=== PATIENT | female | born 1970 | race Caucasian/White ===

== ENCOUNTER 2017-07-06 08:08 | Outpatient (CLI) | payer OTHER ==
--- OUTSIDE RECORDS SUMMARY | 2017-07-06 08:15 | XMS | Clinical Summary ---
:1970 Author Organization [facility] Address [address] [place] [address] Phone Care Team Providers Name Role Phone , Primary Care Provider Unavailable Allergies Not on File Current Medications Not on file Active Problems Not on file Social History Tobacco Use Types Packs/Day Years Used Date Never Assessed Sex Assigned at Date Recorded Not on file Last Filed Vital Signs Not on file Plan of Treatment Not on file Results Not on filefrom Last 3 Months
[2017-07-06 10:25] LABS: Hematocrit 50.4 % (36.0-47.0); Mean Platelet Volume 7.7 fL (7.4-10.4)
[2017-07-06 10:41] LABS: ALT (SGPT) 34 U/L (8-55); AST (SGOT) 25 U/L (5-34); Alkaline Phosphatase 108 U/L (40-150); Anion Gap 17 mmol/L (10-20); BUN (Urea Nitrogen) 19 mg/dL (7.0-18.7); Bilirubin, Direct 0.6 mg/dL (0.1-0.3); Bilirubin, Total 1.4 mg/dL (0.2-1.2); Calc. Creatinine Clearance 0 mL/min (70-130); Calcium 9.8 mg/dL (7.8-10.44); Carbon Dioxide 24 mmol/L (22-29); Chloride 101 mmol/L (98-107); Estimated GFR-MDRD Greater than 90; Globulin 3.3 g/dL (2.4-3.5); Protein, Total 7.7 g/dL (6.0-8.3)
[2017-07-06 10:48] LABS: Hemoglobin A1c 10.7 % (4.0-6.0)
--- NOTE | 2017-07-06 12:41 | RAD ---
CHEST PA AND LATERAL: HISTORY: A 46-year-old female for preoperative evaluation. FINDINGS: Heart size is normal. The lungs are clear. IMPRESSION: No acute intrathoracic disease. POS: [facility]
== END 2017-07-06 08:09 | disposition home or self-care (01) ==
LOC: LABBT 08:08
PROVIDERS: ATTEND Surgery
DX: Z01.818 Encounter for other preprocedural examination (principal); E66.01 Morbid (severe) obesity due to excess calories
CPT/HCPCS: 71020; 80053; 80076; 83036; 85027; 93005; 93010

== ENCOUNTER 2018-08-17 09:02 | Outpatient (CLI) | payer OTHER ==
--- NOTE | 2018-08-17 10:35 | ULT ---
GALLBLADDER ULTRASOUND: HISTORY: Hyperbilirubinemia. COMPARISON: None. TECHNIQUE: Utilizing a Multi-Hertz transducer, sonographic imaging of the right upper quadrant was performed in the longitudinal and transverse planes. FINDINGS: The head and proximal body of the pancreas have a normal echotexture. The remainder of the pancreas is obscured by bowel gas. The visualized aorta has a normal caliber. Increased echogenicity of the liver may be due to hepatic steatosis or hepatocellular disease. Subse quent evaluation for hepatic mass and intrahepatic biliary dilatation is limited. The contour of the hepatic margin is maintained. The right hepatic lobe measures 19.5 cm. The main portal vein is patent. Appropriate directional flow. No evidence of hydronephrosis. The right kidney measures 4.9 x 6.1 x 12.6 cm. Suboptimal evaluation of the common duct. There is a nonshadowing echogenic focus adherent to the wall of the gallbladder, likely representing an adherent, nonshadowing stone versus a gallbladder wall polyp. There is no evidence of pericholecy stic fluid. the gallbladder wall is not thickened. Negative Eagle sign. IMPRESSION: No sonographic evidence of cholecystitis. POS: [facility]
== END 2018-08-17 09:03 | disposition home or self-care (01) ==
LOC: BICULT 09:02
PROVIDERS: ATTEND Internal Medicine
DX: Z12.31 Encounter for screening mammogram for malignant neoplasm of breast (principal); E80.6 Other disorders of bilirubin metabolism; Z98.82 Breast implant status
CPT/HCPCS: 76705; 77063; 77067

== ENCOUNTER 2019-02-14 16:18 | Outpatient (CLI) | payer OTHER ==
--- NOTE | 2019-02-15 07:42 | MRI ---
MRI Upper Ext Jt Lt WO Con History: N25.512 pain in left shoulder. Comparison: Shoulder radiographs December 22, 2018. Findings: Biceps tendon: Mild extra-articular biceps tenosynovitis. Moderate intra-articular tendinosis. Labrum: There is a superior labral tear extending anterior to posterior to the biceps labral expansio n without inferior displacement of the labral tissue. There is tear extending to the posterior superior and anterior superior labrum. There is also tear extending into the anterior inferior labrum as well as middle glenohumeral ligament. Rotator cuff: Intact No full thickness perforation. Low-grade tendinosis. Subscapularis is intact. Superior glenohumeral l igament portion of the biceps alyson is intact as well as the cortical humeral ligament. Muscles: Muscle signal and bulk is normal. Bones: Type I acromion. No marrow infiltrative process. Very mild glenoid dysplasia. Soft tissues: There is a mild haziness within the rotator interval and subcoracoid fat indicating cody e low-grade synovitis. Impression: 1. Superior labral tear anterior-posterior to the biceps labral expansion with extension within the a nterior superior, anterior inferior labrum as well as middle glenohumeral ligament involvement 2. Intact rotator cuff with very low-grade supraspinatus bursal surface fraying and small subacromial /subdeltoid bursa effusion. 3. Low-grade extra articular biceps tenosynovitis. No subluxation. Biceps alyson is intact. 4. Very low-grade glenoid dysplasia. 5. Low-grade fibrosis and synovitis within the rotator interval. Transcribed Date/Time: 02/15/2019 9:21 AM
== END 2019-02-14 16:19 | disposition home or self-care (01) ==
LOC: SCSMRI 16:18
PROVIDERS: ATTEND Internal Medicine
DX: M25.512 Pain in left shoulder (principal); S43.402A Unspecified sprain of left shoulder joint, initial encounter; M25.412 Effusion, left shoulder; M75.22 Bicipital tendinitis, left shoulder; M65.812 Other synovitis and tenosynovitis, left shoulder; Q74.0 Other congenital malformations of upper limb(s), including shoulder girdle

== ENCOUNTER 2019-07-01 07:00 | Outpatient (CLI) | payer OTHER ==
--- NOTE | 2019-07-01 08:14 | CT ---
CT TEMPORAL BONES: 07/01/2019 COMPARISON: 04/10/2016 HISTORY: Cholesteatoma on the right status post numerous prior surgeries. Assess for recurrent disease. TECHNIQUE: Axial CT imaging obtained at 0.75 mm intervals through the temporal bones with coronal and sagittal r eformatted imaging. FINDINGS: The visualized paranasal sinuses appear grossly unremarkable. Left temporal bone: The internal auditory canal, cochlea, vestibule, vestibular aqueduct, semicircula r canals, and course of the facial nerve appear normal. The ossicles appear intact. Prussak's space is clear. Scutum is sharp. No evidence for osseous dehiscence. The mastoid air cells are under-pneuma tized. Vascular foramina appear grossly unremarkable. No acute osseous abnormality. Right temporal bone: The internal auditory canal, cochlea, vestibule, vestibular aqueduct, and semici rcular canals appear unremarkable. The course of the facial nerve appears grossly unremarkable. The patient is status post canal wall up mastoidectomy. The mastoid bowl is filled with soft tissue d ensity which measures approximately 1.2 cm in AP dimension and approximately 1.9 cm in transverse dimension. This soft tissue density extends into the region of the lateral aspect of the mesotympanum and extends into the epitympanum. The soft tissue mass in this region is less extensive and smaller than the mass seen on the 04/10/2016 examination. There is mild irregular soft tissue density in the medial most aspect of the external auditory canal on the right, less conspicuous than on the prior examination. On the prior examination soft tissue density extended medially to fill the mes otympanum but on this examination the medial extent and inferior extent are less extensive. Soft tissue density does not extend into the region of the facial nerve recess or the sinus tympani on thi s examination. Soft tissue density measures approximately 1 cm in craniocaudal dimension. The ossicles appear absent on the right. The vascular foramina appear patent. IMPRESSION: Soft tissue mass in the mastoid bowl on the right extending into the region of the mesotympanum and e pitympanum with soft tissue debris and/or mass extension into the external auditory canal. Given the patient's history this is suspicious for a recurrent/residual cholesteatoma. This is less c onspicuous than on the 04/10/2016 which suggests possible interval surgery. Transcribed Date/Time: 07/01/2019 10:15 AM
== END 2019-07-01 07:01 | disposition home or self-care (01) ==
LOC: SCSCT 07:00 → SCSRAD 07:01
PROVIDERS: ATTEND Otolaryngology Plastic Surgery within the Head & Neck
DX: H71.90 Unspecified cholesteatoma, unspecified ear (principal)
CPT/HCPCS: 70480

== ENCOUNTER 2020-03-16 16:32 | Observation (INO) | payer OTHER ==
[~2020-03-16 16:32] MED LIST: Iopamidol 370 76% 100 ML VIAL ONE
[2020-03-16 17:32] LABS: #Eosinphils 0.2 thou/uL (0.0-0.7); #Lymphocytes 3.1 thou/uL (1.20-3.40); #Monocytes 0.5 thou/uL (0.11-0.59); #Neutrophils 4.5 thou/uL (1.40-6.50); %Basophils 0.5 % (0.0-1.0); %Eosinophils 2.9 % (0.0-10.0); %Lymphocytes 37.1 % (21.0-51.0); %Neutrophils 53.6 % (42.0-75.0); Hemoglobin 14.3 g/dL (12.0-16.0); Mean Corpuscular HGB CONC 33.8 g/dL (32.0-36.0); Mean Corpuscular Hemoglobin 27.3 pg (27.0-31.0); Mean Corpuscular Volume 80.8 fL (78.0-98.0); Mean Platelet Volume 7.3 fL (7.4-10.4); Platelet Count 315 thou/uL (130-400); RBC Distribution Width 12.2 % (11.5-14.5); Red Blood Cell (RBC) Count 5.24 mill/uL (4.20-5.40); White Blood Cell (WBC) Count 8.5 thou/uL (4.8-10.8)
[2020-03-16 17:40] LABS: BHCG - Serum Negative (NEGATIVE); Pregs Control Background? CLEAR/WHITE (CLR/WHITE); Pregs Control Bar Appear? YES (CONTROL BAR)
[2020-03-16 18:01] LABS: ALT (SGPT) 40 U/L (8-55); AST (SGOT) 26 U/L (5-34); Albumin 4.4 g/dL (3.5-5.0); Alkaline Phosphatase 101 U/L (40-110); Anion Gap 14 mmol/L (10-20); BUN (Urea Nitrogen) 15 mg/dL (7.0-18.7); CRP (Inflammatory) 0.58 mg/dL (= or < 0.5); Calc. Creatinine Clearance 0 mL/min (70-130); Calcium 9.7 mg/dL (7.8-10.44); Carbon Dioxide 26 mmol/L (22-29); Chloride 102 mmol/L (98-107); Estimated GFR-MDRD Greater than 90; Globulin 3.3 g/dL (2.4-3.5); Glucose 166 mg/dL (70-105); Protein, Total 7.7 g/dL (6.0-8.3); Sodium 138 mmol/L (136-145)
--- NOTE | 2020-03-16 18:04 | CT ---
Head CT without contrast 03/16/2020: COMPARISON: None HISTORY: Headache TECHNIQUE: Axial CT imaging at 5 mm intervals from vertex through skull base without contrast FINDINGS: The visualized paranasal sinuses appear well-aerated. The patient appears status post masto idectomy on the right. No displaced calvarial fracture. No intracranial hemorrhage, midline shift, or mass effect. IMPRESSION: No acute findings.
[2020-03-16] MEDS ORDERED: Aspirin 325 MG TAB ONE (18:40)
[2020-03-16] MEDS ORDERED: Acetaminophen 650 MG Suppository PR PRN (20:11)
[2020-03-16] MEDS ORDERED: Dextrose 5% in Water 1,000 ML IV PRN (20:18)
[2020-03-16] MEDS ORDERED: Dextrose 50% Abboject 50 ML SYRINGE SLOW IVP PRN (20:18)
[2020-03-16] MEDS ORDERED: HumaLOG 300 UNITS/3 ML VIAL SC PRN ×2 (20:18)
--- NOTE | 2020-03-16 20:41 | CT ---
CT angiogram head CT angiogram neck: 03/16/2020 COMPARISON: None HISTORY: Throbbing headache with double vision TECHNIQUE: Axial CT imaging at 1.25 mm intervals through the head and neck with IV contrast using CT angiogram protocol. Coronal and sagittal 3-D reformatted imaging obtained. FINDINGS: The imaged lung apices appear unremarkable. The retroantral fat, parapharyngeal fat, parotid glands, and submandibular glands appear grossly unre markable. The tonsillar pillars, epiglottis and preepiglottic fat, hyoid bone, cricoid cartilage, and cricoid cartilage appear grossly unremarkable. The thyroid gland is mildly enlarged and heterogen eous. There is a bovine arch noted. Origin of the innominate artery, right vertebral artery, right subclavi an artery, right common carotid artery, left common carotid artery, left subclavian artery, and left vertebral artery unremarkable. Bilateral vertebral arteries are patent. The right vertebral artery is dominant. The basilar artery and its branches are patent with no saccular aneurysm, high-grade stenosis, or vas cular occlusion of the posterior circulation. On the basis of NASCET criteria there is no hemodynamically significant stenosis involving the common carotid artery or the internal carotid artery on either side. There is no saccular aneurysm, high-grade stenosis, or vascular occlusion of the anterior circulation . Review of the osseous structures demonstrates no worrisome lytic or blastic bone lesion. IMPRESSION: No acute findings.
[2020-03-16] MEDS ORDERED: Atorvastatin Calcium 40 MG TAB PO SCH (21:00)
[2020-03-16 21:20] VITALS: BMI 41.1
[2020-03-16] MEDS: Famotidine/PF 20 mg/2ml Vial SLOW IVP SCH (23:17)
[2020-03-17] MEDS ORDERED: Melatonin 3 MG TAB PO PRN (00:45)
[2020-03-17] MEDS: Acetaminophen 325 MG TAB PO PRN ×2 (01:24→09:36)
[2020-03-17 05:23] LABS: #Basophils 0.1 thou/uL (0.0-0.2); #Eosinphils 0.3 thou/uL (0.0-0.7); #Lymphocytes 2.7 thou/uL (1.20-3.40); #Monocytes 0.6 thou/uL (0.11-0.59); #Neutrophils 4.6 thou/uL (1.40-6.50); %Basophils 0.7 % (0.0-1.0); %Eosinophils 3.8 % (0.0-10.0); %Lymphocytes 32.8 % (21.0-51.0); %Monocytes 7.7 % (0.0-10.0); Hemoglobin 13.7 g/dL (12.0-16.0); Mean Corpuscular HGB CONC 32.5 g/dL (32.0-36.0); Mean Corpuscular Hemoglobin 26.5 pg (27.0-31.0); Mean Corpuscular Volume 81.4 fL (78.0-98.0); Mean Platelet Volume 7.8 fL (7.4-10.4); Platelet Count 287 thou/uL (130-400); RBC Distribution Width 12.3 % (11.5-14.5); Red Blood Cell (RBC) Count 5.17 mill/uL (4.20-5.40); White Blood Cell (WBC) Count 8.3 thou/uL (4.8-10.8)
[2020-03-17 05:46] LABS: Anion Gap 12 mmol/L (10-20); BUN (Urea Nitrogen) 15 mg/dL (7.0-18.7); Calc. Creatinine Clearance 203 mL/min (70-130); Calcium 9.4 mg/dL (7.8-10.44); Carbon Dioxide 26 mmol/L (22-29); Cardiac Risk 3.1 (Less than 4.5); Chloride 103 mmol/L (98-107); Cholesterol 147 mg/dl (< 200 Desired); Estimated GFR-MDRD Greater than 90; Glucose 205 mg/dL (70-105); HDL Cholesterol 47 mg/dL (>60 Neg Risk); LDL Cholesterol, Calculated 78 mg/dL; Potassium 3.9 mmol/L (3.5-5.1); Sodium 137 mmol/L (136-145); Triglycerides 110 mg/dL (Less than 150)
--- NOTE | 2020-03-17 05:48 | HP ---
TIME OF ASSESSMENT: 1920 hours. PRIMARY CARE PHYSICIAN: Shavonne bAdi MD CHIEF COMPLAINT: Right-sided headache and double vision in the right eye. HISTORY OF PRESENT ILLNESS: Ms. Pena is a 49-year-old woman who presents to the emergency department after seeing her primary care physician, Dr. Abdi, for persistent right-sided headache with double vision in the right eye since Thursday. She has a history of diabetes, and there was concern for possible cranial nerve 6 palsy; however, she was advised to come to the emergency department to undergo a stroke workup. The patient states that her symptoms developed around noon on Thursday. She reports having a mild right-sided headache and does not normally suffer from headaches or migraines. Denies experiencing any facial weakness or numbness. No extremity weakness or numbness or gait disturbances. States that her vision is blurred in the right eye, and when she looks to the right side, she experiences double vision. The pain in her head feels like a pressure behind her right eye. States the headache is a 6 to 7/10 in severity. Denies any associated nausea or vomiting. All other review of systems are negative. She has been afebrile. Prior to Thursday, she was completely well in herself. Does not have any history of recent trauma. EMERGENCY DEPARTMENT COURSE: EKG done in the emergency department shows a normal sinus rhythm with a heart rate of 82 and infrequent PVCs. The patient states the PVCs are chronic. She had laboratory studies done showing a white count of 8.5, hemoglobin 14.3, platelets 315, neutrophils 53.6. ESR was 13. CRP mildly elevated at 0.58. Sodium 138, potassium 4, BUN 15, creatinine 0.65, GFR greater than 90, glucose 166. LFTs unremarkable. Troponin negative. Albumin 4.4. She had a serum test done, which was negative. CT of the brain was obtained showing no acute findings. The patient was given 325 mg of aspirin and being admitted for further workup. PAST MEDICAL HISTORY: 1. Type 2 diabetes mellitus. 2. Hyperlipidemia. 3. Hypertension. 4. Obesity. PAST SURGICAL HISTORY: 1. Hysterectomy. 2. Breast augmentation. 3. Ear surgery x6. 4. Ear tube in the right ear. 5. Rotator cuff repair of the left shoulder. 6. Cardiac ablation. 7. Abdominoplasty. 8. Gastric sleeve. SOCIAL HISTORY: The patient lives at home with her family. Denies any tobacco use, alcohol consumption, or illicit drug use. ALLERGIES: LISINOPRIL. CURRENT MEDICATIONS: 1. Aspirin 81 mg p.o. daily. 2. Atorvastatin 20 mg p.o. daily. 3. Levemir. 4. Losartan 100 mg p.o. daily. 5. Metformin 1000 mg p.o. twice daily. 6. Victoza. 7. Multivitamin p.o. daily. PHYSICAL EXAMINATION: GENERAL: The patient appears well developed, well nourished, and is in no acute distress. She was found resting comfortably on the stretcher. VITAL SIGNS: Temperature 98.5, pulse 81, blood pressure 160/85, respirations 14, O2 saturation 96% on room air. HEENT: Normocephalic and atraumatic. Pupils are equal, round, and reactive to light. Extraocular movements intact. No nystagmus. However, she does have discomfort in the right eye with double vision when gazing to the right side. The patient with blurred vision in the right eye. Peripheral vision intact bilaterally. Oropharynx is clear. The patient with some slight tenderness to the right jewish. NECK: Supple. Full range of motion. No neck tenderness or rigidity. LUNGS: Clear to auscultation bilaterally without wheezes, rales, or rhonchi. CARDIAC: Regular rate and rhythm. ABDOMEN: Soft, nontender, and nondistended. Obese. Normoactive bowel sounds present. No guarding or rigidity. No renal angle tenderness. EXTREMITIES: No lower leg swelling or edema. NEUROLOGICAL: Alert and oriented x3. SKIN: Warm and dry. INVESTIGATIONS: As mentioned above in HPI. IMPRESSION AND PLAN: Ms. Pena is a 49-year-old woman who is being admitted for management of the followin. Cerebrovascular accident, rule out. The patient with pain behind right eye and new onset of blurred vision/diplopia of the right eye since Thursday. Referred by her primary care physician who suspects she could have palsy of cranial nerve 6 associated with her history of diabetes, but I am recommending cerebrovascular accident rule out. The patient without any other neuro deficits on exam. CT head unremarkable. We will obtain a CT angiogram of the head and neck as per discussion with Dr. Mata. The patient had an MRI of the brain in the morning. Neuro consult placed. An echocardiogram ordered. We will continue with 325 mg of aspirin daily. She normally takes 81 mg at home. We will also increase her statin to 40 mg of atorvastatin daily. Further management as per Neurology. Lipid panels will be checked with a.m. labs. Emergency department physician did check ESR and CRP for possible temporal arteritis; however, ESR is normal. 2. Hypertension. Monitor blood pressure and reconcile home medications once verified. 3. Hyperlipidemia. As mentioned above, we will increase her statin. 4. Diabetes mellitus. Reconcile medications once verified. We will monitor blood glucose. Insulin sliding scale initiated. 5. Gastrointestinal prophylaxis with famotidine. 6. Deep venous thrombosis prophylaxis with mechanical sequential compression devices. 7. Code status full. Surrogate decision maker is her , Wesley Pena. Case discussed with Felix Blunt who agrees with plan of care as described above. Job ID: [id number]
[2020-03-17] MEDS ORDERED: Aspirin 325 mg Enteric Coated Tablet PO SCH (09:00)
[2020-03-17] MEDS: Famotidine/PF 20 mg/2ml Vial SLOW IVP SCH (09:26)
[2020-03-17] MEDS ORDERED: Lorazepam 2 MG/ML VIAL SLOW IVP SCH (09:45)
--- NOTE | 2020-03-17 10:47 | CON ---
DATE OF CONSULTATION: 03/17/2020 CONSULTING PHYSICIAN: Hospitalist Service. 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 PLAN: 1. MRI of the brain to rule out something central. 2. Continue current treatment. HISTORY OF PRESENT ILLNESS: Ms. Pena is a 49-year-old woman with history of obesity and diabetes. She developed double vision about five days ago. There was some associated retro-orbital pain. She notes that when she looks to the left, her vision is clear and when she looks to the right, it becomes double. Images are horizontally oriented. There is no associated nausea, vomiting, slurred speech, difficulty swallowing, alteration of consciousness, lateralized weakness, or numbness. PAST MEDICAL HISTORY: Diabetes, hyperlipidemia, and hypertension. SOCIAL HISTORY: No tobacco or alcohol use. FAMILY HISTORY: Noncontributory. MEDICATION LIST: Reviewed. ALLERGIES: LISINOPRIL. REVIEW OF SYSTEMS: Ten-system review of systems is otherwise negative. PHYSICAL EXAMINATION: GENERAL: She is an overweight, middle-aged woman, in no acute distress. VITAL SIGNS: Blood pressure 131/66, pulse 83, respirations 16, and temperature 98.2. HEENT: Pupils are equal and reactive. Conjunctivae clear. No ptosis present. Her oropharynx is clear. Cranium, normocephalic and atraumatic. NECK: Supple. EXTREMITIES: No cyanosis or edema. SKIN: No rash present. CHEST: Clear. ABDOMEN: Soft. NEUROLOGIC: She is alert and oriented x3. Her speech is fluent and clear. Cranial nerve exam shows some mild weakness of sixth nerve function on the right. The remainder of her exam was unremarkable. LABORATORY STUDIES: Unremarkable CBC. Serum chemistry showed elevated blood glucose between 188 and 309. Cholesterol ratio is 3.1. IMAGING DATA: CT of the brain and CT angiogram were unremarkable. SUMMARY: This is a middle-aged woman with acute double vision for the last five days with what appears to be a sixth nerve palsy on the right. This is most likely an isolated neuropathy rather than a central lesion. Prognosis for recovery is quite good. I agree with current management. Job ID: [id number]
[2020-03-17 12:03] VITALS: BP 141/69; TEMP 98.6
--- NOTE | 2020-03-17 12:36 | MRI ---
BRAIN MRI WITHOUT IV CONTRAST: Date: 03/17/2020 HISTORY: Stroke. FINDINGS: No focal mass or midline shift. No intra or extra-axial hemorrhage. No evidence for acute infarct. Mi ld sinus mucosal changes within the ethmoid sinuses, as well as abnormal opacification of the right m astoid. Normal expected flow-voids are evident. IMPRESSION: No significant acute intracranial process. No acute infarct. Mild sinus mucosal changes and some abno rmal opacification in the right mastoid. POS: [facility]
--- NOTE | 2020-03-17 20:39 | DIS ---
DATE OF ADMISSION: 03/16/2020 DATE OF DISCHARGE: 03/17/2020 DISCHARGE DIAGNOSES: 1. Diplopia of the right eye, most likely secondary to 6th nerve palsy, most likely from diabetes. 2. Diabetes, type 2. 3. Obesity. 4. Hypertension. HOSPITAL COURSE: The patient is a 49-year-old female who initially presented to the hospital on 03/16 with complaints of right-sided headache and double vision of the right eye. The patient at this time has seen home builder on and per the home builder note which the patient had with her, she wanted the patient to be ruled out for possible TIA. The patient at this time was on aspirin and statin. She underwent a CTA and an MRI brain. The patient's CTA did not show any acute abnormalities. At this time, the patient also had an MRI brain and also was seen by Neurology. MRI brain was negative. She has had some mild sinus mucosal changes and opacification of the right mastoid. The patient at this time was discharged to home. She was asked to follow up with her primary care doctor. Echocardiogram was ordered, however, was not done. I have recommended the patient to follow up with an echocardiogram as an outpatient. I have also counseled her for weight loss and diabetes control. The patient is well aware of that. HOME MEDICATIONS: Will be: 1. Aspirin 81 mg daily. 2. Statin 20 mg daily. 3. Multivitamin one daily. 4. Losartan 100 mg daily. 5. Levemir 56 units at night. 6. Victoza 0.6 daily. 7. Metformin 1000 g b.i.d. 8. Tylenol as needed. 9. Melatonin 5 mg p.o. at bedtime. The patient has asked to take her metformin, starting on Thursday. PHYSICAL EXAMINATION: VITAL SIGNS: Temperature 98.6, pulse 92, respirations 15, oxygen saturation is 98% on room air, and blood pressure 141/69. GENERAL: She is awake, alert, and oriented x3. She does not appear in distress. CV: S1, S2 present. No murmurs, rubs, or gallops., ABDOMEN: Soft, nontender. Bowel sounds are present x2. Again, she will be discharged to home. Follow up with primary. Job ID: [id number]
== END 2020-03-17 17:55 | disposition home or self-care (01) ==
LOC: ERS 16:32 → 2SE 19:05
PROVIDERS: ADMIT Internal Medicine; ATTEND Internal Medicine
DX: H53.2 Diplopia (principal); E11.9 Type 2 diabetes mellitus without complications; E66.9 Obesity, unspecified; I10 Essential (primary) hypertension; E78.5 Hyperlipidemia, unspecified; Z79.82 Long term (current) use of aspirin; Z79.84 Long term (current) use of oral hypoglycemic drugs; Z79.899 Other long term (current) drug therapy; Z88.8 Allergy status to other drugs, medicaments and biological substances; Z68.41 Body mass index [BMI] 40.0-44.9, adult
CPT/HCPCS: 36415; 36416; 70450; 70496; 70498; 70551; 80048; 80053; 80061; 83880; 84443; 84484; 84703; 85025; 85652; 86140; 93005; 93306; 96374; 96375; 96376; G0378; J2060; Q9967; S0028

== ENCOUNTER 2020-03-19 07:03 | Outpatient (CLI) | payer OTHER ==
--- NOTE | 2020-03-19 07:57 | ULT ---
ULTRASOUND ABDOMEN LIMITED: (RIGHT UPPER QUADRANT) DATE: 03/19/2020 HISTORY: 49-year-old female with right upper quadrant abdominal pain and "K 82.4 gallbladder polyp" FINDINGS: Gallbladder: Normal wall thickness. No evidence of pericholecystic fluid, gallstones, or sludge. 5 mm nonshadowing, immobile, round moderately echogenic focus in the lumen, adherent to gallbladder wall. Liver: Diffusely increased echogenicity, consistent with fatty liver. Common duct caliber:4 mm. Right kidney: No hydronephrosis. Pancreas: Nonspecific sonographic appearance. IMPRESSION: 1) Hepatic steatosis. 2) small gallbladder polyp
== END 2020-03-19 07:04 | disposition home or self-care (01) ==
LOC: BICULT 07:03
PROVIDERS: ATTEND Internal Medicine
DX: K82.4 Cholesterolosis of gallbladder (principal); K76.0 Fatty (change of) liver, not elsewhere classified
CPT/HCPCS: 76705

== ENCOUNTER 2023-08-03 07:52 | Outpatient (CLI) | payer BC | END 2023-08-03 07:53 | disposition home or self-care (01) | LOC: ULT 07:52 | PROVIDERS: ATTEND Internal Medicine | DX: K82.4 Cholesterolosis of gallbladder (principal); R16.0 Hepatomegaly, not elsewhere classified; K76.0 Fatty (change of) liver, not elsewhere classified | CPT/HCPCS: 76705 ==

== ENCOUNTER 2023-09-02 06:59 | Day surgery (SDC) | payer BC ==
[2023-08-27 12:40] VITALS: BMI 39.1
[2023-09-02] MEDS ORDERED: Bupivacaine 0.25% HCL 30 ML VIAL ONE (08:45)
[2023-09-02] MEDS ORDERED: Indocyanine Green 25 MG/10 ML VIAL ONE (08:45)
[2023-09-02] MEDS ORDERED: EPINEPHrine 1 MG/ML VIAL ONE (08:45)
[2023-09-02] MEDS ORDERED: PROPOFOL 20 ML ONE (08:53)
[2023-09-02] MEDS ORDERED: Rocuronium Bromide 10 MG/ML (10ML VIAL) ONE (08:54)
[2023-09-02] MEDS ORDERED: fentaNYL PF 100 MCG/2 ML SYRINGE ONE ×2 (08:54→10:57)
[2023-09-02] MEDS ORDERED: Lidocaine 1% PF 5 ML VIAL ONE (08:54)
[2023-09-02] MEDS ORDERED: Sodium Chloride 0.9% 100 ML ONE (09:27)
[2023-09-02] MEDS ORDERED: CEFAZOLIN 2 GM VIAL ONE (09:27)
[2023-09-02] MEDS ORDERED: fentaNYL 50 mcg/mL 1 mL Vial ONE ×2 (09:59→11:26)
[2023-09-02] MEDS ORDERED: Metoprolol Tartrate 5 MG (5 mL) VIAL ONE (10:06)
[2023-09-02] MEDS ORDERED: Labetalol HCl 100 MG/20 ML VIAL ONE (10:12)
[2023-09-02] MEDS ORDERED: Ondansetron PF 4 MG/2 ML Vial ONE (10:23)
[2023-09-02] MEDS ORDERED: SUGAMMADEX SODIUM 200 MG/2 ML VIAL ONE (10:24)
[2023-09-02] MEDS ORDERED: PHENYLEPHRINE-NS 100 MCG/ML 10 ML SYRINGE ONE (10:28)
[2023-09-02] MEDS ORDERED: hydrALAZINE 20 MG/ML VIAL ONE (10:53)
[2023-09-02] MEDS ORDERED: HYDROcodone/Acetaminophen 5/325 mg Tablet ONE (12:30)
== END 2023-09-02 14:00 | disposition home or self-care (01) ==
LOC: SDC 06:59
PROVIDERS: ATTEND Surgery
PROC: 0FT44ZZ Resection of Gallbladder, Percutaneous Endoscopic Approach (ICD-10-PCS; principal; 2023-09-02)
DX: K81.1 Chronic cholecystitis (principal); I10 Essential (primary) hypertension; I47.10 Supraventricular tachycardia, unspecified; Z98.890 Other specified postprocedural states; Z98.84 Bariatric surgery status; Z79.82 Long term (current) use of aspirin; Z79.899 Other long term (current) drug therapy; Z88.8 Allergy status to other drugs, medicaments and biological substances
CPT/HCPCS: 36416; 88304; 88307; J0171; J0360; J2405; J2704; J3010; J3490; S0020

== ENCOUNTER 2024-09-02 08:37 | Outpatient (CLI) | payer OTHER | END 2024-09-02 08:38 | disposition home or self-care (01) | LOC: BICRAD 08:37 | PROVIDERS: ATTEND Internal Medicine | DX: M25.561 Pain in right knee (principal); M17.11 Unilateral primary osteoarthritis, right knee ==

== ENCOUNTER 2025-07-06 09:53 | Outpatient (CLI) | payer OTHER | END 2025-07-06 09:54 | disposition home or self-care (01) | LOC: BICRAD 09:53 | PROVIDERS: ATTEND Internal Medicine | DX: M51.360 Other intervertebral disc degeneration, lumbar region with discogenic back pain only (principal); M47.816 Spondylosis without myelopathy or radiculopathy, lumbar region; M25.511 Pain in right shoulder | CPT/HCPCS: 72100 ==